=== PATIENT | female | born 1990 | race American Indian/Alaskan Native ===

== ENCOUNTER 2016-06-26 04:17 | Emergency (ER) | payer OTHER ==
[2016-06-26 04:36] VITALS: BP 158/97; PULSE 115; RESP 18; TEMP 98.2; O2SAT 100
[2016-06-26] MEDS ORDERED: DiphenhydrAMINE 50 mg/ml Inj ONE (04:40)
[2016-06-26] MEDS ORDERED: DiphenhydrAMINE 50 mg/ml Inj IM STA (04:43)
[2016-06-26 05:39] LABS: BASO # 0.1 K/uL (0.0-0.2); BASO % 1.2 % (0.0-2.0); EOS # 0.1 K/uL (0.0-0.7); EOS % 1.8 % (0.0-4.0); HEMATOCRIT 40.3 % (34.0-47.0); LYMPH # 1.7 K/uL (1.0-4.3); MEAN CELL VOLUME 84.6 fl (81.0-99.0); MEAN PLATELET VOLUME 9.5 fl (7.2-11.7); MONO # 0.4 K/uL (0.0-0.8); MONO % 5.7 % (0.0-10.0); NEUT % 63.3 % (50.0-75.0); NRBC % 0.1 % (0.0-0.0); RED CELL DISTRIBUTION WIDTH 14.1 % (11.5-14.5); WHITE BLOOD COUNT 6.2 K/uL (4.8-10.8)
[2016-06-26 05:42] LABS: ALB/GLOB RATIO 1.4 (1.0-2.1); ALCOHOL SERUM 218 mg/dl (0-10); ALKALINE PHOSPHATASE 88 U/L (38-126); ALT/SGPT 28 U/L (9-52); AST/SGOT 25 U/L (14-36); BILIRUBIN,TOTAL 0.3 mg/dl (0.2-1.3); BLOOD UREA NITROGEN 16 mg/dl (7-17); CALCIUM 9.3 mg/dL (8.4-10.2); CARBON DIOXIDE 22 mmol/L (22-30); CHLORIDE 108 mmol/L (98-107); GFR AFRICAN-AMERICAN > 60; GLUCOSE,RANDOM 95 mg/dL (65-105); POTASSIUM 3.8 MMOL/L (3.6-5.0); SODIUM 144 mmol/l (132-148); TOTAL PROTEIN 7.7 G/DL (6.3-8.2)
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
== END 2016-06-26 07:11 | disposition home or self-care (01) ==
LOC: MERGE 04:17 → H.ER 04:17 → EDSEX 04:17 → H.ER 07:11
DX: F10.129 Alcohol abuse with intoxication, unspecified (principal); S00.83XA Contusion of other part of head, initial encounter; S09.90XA Unspecified injury of head, initial encounter; Y04.0XXA Assault by unarmed brawl or fight, initial encounter; Y92.89 Other specified places as the place of occurrence of the external cause; J45.909 Unspecified asthma, uncomplicated

== ENCOUNTER 2016-07-01 23:48 | Emergency (ER) | payer OTHER ==
[2016-07-01 23:48] VITALS: BMI 46.5
[2016-07-01 23:53] VITALS: RESP 16; TEMP 98.2; O2SAT 100
--- NOTE | 2016-07-02 00:11 | ED PDOC ---
HPI: General Adult Time Seen by Provider: 07/01/16 23:50 Chief Complaint (Nursing): Medical Clearance Chief Complaint (Provider): Medical clearance History Per: Patient Additional Complaint(s): 25 yo female, PMH of HTN, presents to ED To ED via BLS and in custody of [place] [employer] for medical and psychiatric clearance prior to incarceration. Patient c/o headache. States she has not taken her bp medication in 2 months. Past Medical History Reviewed: Nursing Documentation, Vital Signs Vital Signs: Last Vital Signs Temp 98.2 F 07/01/16 23:50 Pulse 75 07/02/16 01:15 Resp 16 07/02/16 01:15 BP 159/95 H 07/02/16 01:15 Pulse Ox 100 07/03/16 05:43 - Medical History PMH: Asthma (non compliant), Bronchitis, HTN (non compliant) Denies: Depression, Chronic Kidney Disease - Surgical History Surgical History: No Surg Hx - Family History Family History: States: Unknown Family Hx - Social History Current smoker - smoking cessation education provided: No Alcohol: Social Drugs: Cannabis - Immunization History Hx Tetanus Toxoid Vaccination: No Hx Influenza Vaccination: No Hx Pneumococcal Vaccination: No - Home Medications Home Medications: Ambulatory Orders Medication Instructions Recorded Albuterol HFA [Ventolin HFA 90 2 puff IH Q4 #1 puff 03/30/16 mcg/actuation (8 g)] Cyclobenzaprine [Flexeril] 5 mg PO Q8 PRN #14 tab 03/30/16 Hydrochlorothiazide [Microzide] 25 mg PO DAILY #20 cap 03/30/16 Ibuprofen [Motrin] 600 mg PO Q6 PRN #30 tab 03/30/16 NIFEdipine ER [Procardia XL] 30 mg PO DAILY #20 ter 03/30/16 guaiFENesin [guaifENESIN] 200 mg PO Q8 PRN #1 bottle 03/30/16 Albuterol HFA [Ventolin HFA 90 2 puff IH [id number] #1 puff 04/10/16 mcg/actuation (8 g)] Naproxen [Naprosyn] 500 mg PO BID #14 tab 04/10/16 - Allergies Allergies/Adverse Reactions: Allergies Allergy/AdvReac Type Severity Reaction Status Date / Time No Known Allergies Allergy Verified 07/01/16 23:50 Review of Systems ROS Statement: Except As Marked, All Systems Reviewed And Found Negative Physical Exam - Reviewed Nursing Documentation Reviewed: Yes Vital Signs Reviewed: Yes - Physical Exam Appears: Positive for: Well, Non-toxic, No Acute Distress Head Exam: Positive for: ATRAUMATIC, NORMAL INSPECTION, NORMOCEPHALIC Skin: Positive for: Normal Color, Warm, DRY Eye Exam: Positive for: EOMI, Normal appearance, PERRL ENT: Positive for: Normal ENT Inspection Neck: Positive for: Normal, Painless ROM Cardiovascular/Chest: Positive for: Regular Rate, Rhythm Respiratory: Positive for: CNT, Normal Breath Sounds Gastrointestinal/Abdominal: Positive for: Normal Exam, Bowel Sounds, Soft Back: Positive for: Normal Inspection Extremity: Positive for: Normal ROM Neurologic/Psych: Positive for: Alert, Oriented - ECG O2 Sat by Pulse Oximetry: 100 Medical Decision Making Medical Decision Making: Pt medicated with Clonidine PO Pt on re-eval doing well, repeat BP 159/95 Disposition - Clinical Impression Clinical Impression: Hypertension, Adjustment disorder - Patient ED Disposition Is Patient to be Admitted: No - Disposition Disposition: Routine/Home Disposition Time: 03:00 Condition: STABLE Additional Instructions: Patient is medically and psychiatrically cleared for incarceration Instructions: Mood Disorders (ED), Hypertension (ED) - POA Present On Arrival: None
[2016-07-02 01:41] VITALS: BP 159/95; PULSE 75
== END 2016-07-02 01:42 ==
LOC: H.ER 23:48
DX: I10 Essential (primary) hypertension (principal); F39 Unspecified mood [affective] disorder

== ENCOUNTER 2016-11-15 01:39 | Emergency (ER) | payer OTHER, MEDICAID ==
[2016-11-15 01:40] VITALS: BMI 46.5
--- NOTE | 2016-11-15 02:54 | ED PDOC ---
HPI: Chest Pain Time Seen by Provider: 11/15/16 01:43 Chief Complaint (Nursing): Chest Pain Chief Complaint (Provider): Chest pain History Per: Patient History/Exam Limitations: no limitations Onset/Duration Of Symptoms: Days (weeks) Current Symptoms Are (Timing): Intermittent Episodes (pain with sudden movement or bending down) Exacerbating Factors: Movement (bending down or sudden movement) Alleviating Factors: Other (massaging/pressing on chest) Additional Complaint(s): Patient is a 26 y/o female with a past medical history of hypertension, adjustment disorder, asthma, and alcoholism who presents to the ED complaining of intermittent chest pain that has persisted for weeks. She reports that the pain is worsened by bending down or sudden movement, and that it worsened today at her job as she lifted heavy things. She also reports that the pain is alleviated by massaging or pressing on her chest. Patient claims that she has not been complying on medication for her hypertension for over a month due to difficulties with insurance, and denies any shortness of breath, vomiting, diarrhea, or coughing. Patient claims she is currently not on any medications. Blood pressure at triage was 146/84. PMD: Provider TBD - Risk Factors TAD Risk Factors: Pos: Hypertension Past Medical History Reviewed: Historical Data, Nursing Documentation, Vital Signs Vital Signs: Last Vital Signs Temp 98.6 F 11/15/16 01:59 Pulse 79 11/15/16 05:32 Resp 16 11/15/16 01:59 BP 135/61 11/15/16 05:32 Pulse Ox 98 11/15/16 05:27 - Medical History PMH: Asthma (non compliant), Bronchitis, HTN (non compliant) Denies: Depression, Diabetes, Hepatitis, HIV, Chronic Kidney Disease, Seizures, Sexually Transmitted Disease Other PMH: Adjustment disorder, alcoholism - Surgical History Surgical History: - Family History Family History: States: No Known Family Hx, Unknown Family Hx - Social History Current smoker - smoking cessation education provided: Yes (Light smoker, <10 cigarettes daily) Alcohol: Occasional Drugs: Denies - Immunization History Hx Tetanus Toxoid Vaccination: No Hx Influenza Vaccination: No Hx Pneumococcal Vaccination: No - Home Medications Home Medications: Ambulatory Orders Medication Instructions Recorded Albuterol HFA [Ventolin HFA 90 2 puff IH Q4 #1 puff 03/30/16 mcg/actuation (8 g)] Cyclobenzaprine [Flexeril] 5 mg PO Q8 PRN #14 tab 03/30/16 Hydrochlorothiazide [Microzide] 25 mg PO DAILY #20 cap 03/30/16 Ibuprofen [Motrin] 600 mg PO Q6 PRN #30 tab 03/30/16 NIFEdipine ER [Procardia XL] 30 mg PO DAILY #20 ter 03/30/16 guaiFENesin [guaifENESIN] 200 mg PO Q8 PRN #1 bottle 03/30/16 Albuterol HFA [Ventolin HFA 90 2 puff IH [id number] #1 puff 04/10/16 mcg/actuation (8 g)] Naproxen [Naprosyn] 500 mg PO BID #14 tab 04/10/16 - Allergies Allergies/Adverse Reactions: Allergies Allergy/AdvReac Type Severity Reaction Status Date / Time No Known Allergies Allergy Verified 07/01/16 23:50 Review of Systems ROS Statement: Except As Marked, All Systems Reviewed And Found Negative Cardiovascular: Positive for: Chest Pain Respiratory: Negative for: Cough, Shortness of Breath Gastrointestinal: Negative for: Vomiting, Diarrhea Physical Exam - Reviewed Nursing Documentation Reviewed: Yes Vital Signs Reviewed: Yes - Physical Exam Appears: Positive for: No Acute Distress Head Exam: Positive for: ATRAUMATIC, NORMOCEPHALIC Skin: Positive for: Normal Color, Warm, Dry Eye Exam: Positive for: Normal appearance, EOMI, PERRL ENT: Positive for: Normal ENT Inspection Cardiovascular/Chest: Positive for: Regular Rate, Rhythm. Negative for: Murmur Respiratory: Positive for: Normal Breath Sounds. Negative for: Respiratory Distress Gastrointestinal/Abdominal: Positive for: Normal Exam, Soft. Negative for: Tenderness Back: Positive for: Normal Inspection. Negative for: L CVA Tenderness, R CVA Tenderness, Vertebral Tenderness Extremity: Positive for: Normal ROM. Negative for: Pedal Edema Neurologic/Psych: Positive for: Alert, Oriented (x3). Negative for: Motor/ Sensory Deficits Comments: Appears obese - Laboratory Results Result Diagrams: 11/15/16 02:57 11/15/16 02:57 - ECG ECG Rhythm: Positive for: Normal QRS, Sinus Rhythm Rate: 93 O2 Sat by Pulse Oximetry: 98 (RA) Pulse Ox Interpretation: Normal Interpretation Of Abnormal: Left Ventricular Hypertrophy Medical Decision Making Medical Decision Making: Time: 02:48 Initial Impression: chest pain worse with movement likely muscular chest pain ekg and troponin normal Initial Plan: -Labs -Chest XR -Ibuprofen 600mg PO Time: 03:32 -High blood pressure noted Plan: -Trandate 20mg IVP -Catapres 0.2mg PO Time: 04:29 -Patient refused medication for elevated blood pressure Time 05:24 -Patient accepted medication for elevated blood pressure. Blood pressure dropped to 135/61 pt noted to be sleeping and comfortable pt reevaluated and no pain or sob stable for dc and outpt follow up Scribe Attestation: Documented by Araceli Montano, acting as a scribe for Lazaro Briseno MD Provider Scribe Attestation: All medical record entries made by the Scribe were at my direction and personally dictated by me. I have reviewed the chart and agree that the record accurately reflects my personal performance of the history, physical exam, medical decision making, and the department course for this patient. I have also personally directed, reviewed, and agree with the discharge instructions and disposition. Disposition - Clinical Impression Clinical Impression: Chronic hypertension - Patient ED Disposition Is Patient to be Admitted: No Counseled Patient/Family Regarding: Diagnosis, Need For Followup - Disposition Referrals: [facility] [Outside] [facility] [Outside] Disposition: Routine/Home Disposition Time: 03:00 Condition: IMPROVED Additional Instructions: follow up with your primary doctor in 1-2 days you need to take your medication and follow up without fail return to the ED with any worsening or concerning symptoms Instructions: Chronic Hypertension (ED) Forms: [employer] (Canadian)
[2016-11-15 03:03] LABS: BASO # 0.1 K/uL (0.0-0.2); BASO % 1.3 % (0.0-2.0); EOS # 0.1 K/uL (0.0-0.7); EOS % 2.4 % (0.0-4.0); HEMATOCRIT 36.5 % (34.0-47.0); LYMPH # 2.1 K/uL (1.0-4.3); LYMPH % 34.4 % (20.0-40.0); MEAN CORPUSCULAR HEMOGLOBIN 27.7 pg (27.0-31.0); MEAN PLATELET VOLUME 10.1 fl (7.2-11.7); MONO # 0.4 K/uL (0.0-0.8); MONO % 6.6 % (0.0-10.0); NEUT # 3.4 K/uL (1.8-7.0); NEUT % 55.3 % (50.0-75.0); NRBC % 0.1 % (0.0-0.0); RED CELL DISTRIBUTION WIDTH 13.5 % (11.5-14.5); WHITE BLOOD COUNT 6.1 K/uL (4.8-10.8)
[2016-11-15 03:09] LABS: ALB/GLOB RATIO 1.3 (1.0-2.1); ALKALINE PHOSPHATASE 63 U/L (38-126); ALT/SGPT 38 U/L (9-52); AST/SGOT 21 U/L (14-36); BILIRUBIN,TOTAL 0.3 mg/dl (0.2-1.3); BLOOD UREA NITROGEN 13 mg/dl (7-17); CALCIUM 9.1 mg/dL (8.4-10.2); CARBON DIOXIDE 24 mmol/L (22-30); CHLORIDE 106 mmol/L (98-107); GFR AFRICAN-AMERICAN > 60; GLUCOSE,RANDOM 102 mg/dL (65-105); POTASSIUM 3.8 MMOL/L (3.6-5.0); SODIUM 138 mmol/l (132-148); TOTAL PROTEIN 6.7 G/DL (6.3-8.2)
[2016-11-15 03:21] VITALS: RESP 16; TEMP 98.6; O2SAT 98
[2016-11-15] MEDS ORDERED: Labetalol 5 mg/ml Inj 20ML IVP STA (03:32)
[2016-11-15 05:18] VITALS: BP 135/61
[2016-11-15 07:14] VITALS: PULSE 93
--- NOTE | 2016-11-15 09:58 | RAD ---
HISTORY: chest pain COMPARISON: No prior. TECHNIQUE: Chest PA and lateral FINDINGS: LUNGS: No active pulmonary disease. PLEURA: No significant pleural effusion identified. No pneumothorax apparent. CARDIOVASCULAR: Normal. OSSEOUS STRUCTURES: No significant abnormalities. VISUALIZED UPPER ABDOMEN: Normal. OTHER FINDINGS: None. IMPRESSION: No acute cardiopulmonary disease appreciated.
== END 2016-11-15 05:43 | disposition home or self-care (01) ==
LOC: H.ER 01:39
DX: I10 Essential (primary) hypertension (principal); J45.909 Unspecified asthma, uncomplicated; F10.10 Alcohol abuse, uncomplicated

== ENCOUNTER 2017-01-16 06:20 | Emergency (ER) | payer OTHER, MEDICAID ==
[2017-01-16 06:29] VITALS: BMI 45.9
[2017-01-16 06:36] VITALS: RESP 16; TEMP 98.1
[2017-01-16] MEDS ORDERED: Lidocaine 2% Inj (20ml) SC STA (07:23)
[2017-01-16] MEDS ORDERED: Lidocaine 2% Inj (20ml) ONE (07:35)
--- NOTE | 2017-01-16 07:47 | ED PDOC ---
Upper Extremity Pain/Injury Time Seen by Provider: 01/16/17 07:10 Chief Complaint (Nursing): Finger,Hand,&Wrist History Per: Patient (states that she crushed her right index finger with a car door this morning.) Past Medical History Reviewed: Historical Data, Nursing Documentation, Vital Signs Vital Signs: Last Vital Signs Temp 98.1 F 01/16/17 06:33 Pulse 108 H 01/16/17 06:33 Resp 16 01/16/17 06:33 BP 191/126 H 01/16/17 06:33 Pulse Ox 100 01/16/17 06:33 - Medical History PMH: Asthma (non compliant), Bronchitis, HTN (non compliant) Denies: Depression, Diabetes, Hepatitis, HIV, Chronic Kidney Disease, Seizures, Sexually Transmitted Disease - Surgical History Surgical History: - Family History Family History: States: Unknown Family Hx - Immunization History Hx Tetanus Toxoid Vaccination: No Hx Influenza Vaccination: No Hx Pneumococcal Vaccination: No - Home Medications Home Medications: Ambulatory Orders Medication Instructions Recorded Albuterol HFA [Ventolin HFA 90 2 puff IH Q4 #1 puff 03/30/16 mcg/actuation (8 g)] Cyclobenzaprine [Flexeril] 5 mg PO Q8 PRN #14 tab 03/30/16 Hydrochlorothiazide [Microzide] 25 mg PO DAILY #20 cap 03/30/16 Ibuprofen [Motrin] 600 mg PO Q6 PRN #30 tab 03/30/16 NIFEdipine ER [Procardia XL] 30 mg PO DAILY #20 ter 03/30/16 guaiFENesin [guaifENESIN] 200 mg PO Q8 PRN #1 bottle 03/30/16 Albuterol HFA [Ventolin HFA 90 2 puff IH [id number] #1 puff 04/10/16 mcg/actuation (8 g)] Naproxen [Naprosyn] 500 mg PO BID #14 tab 04/10/16 Acetaminophen [Tylenol 325mg tab] 650 mg PO Q6H PRN #30 tab 01/16/17 Naproxen [Naprosyn] 500 mg PO BID PRN #20 tablet 01/16/17 - Allergies Allergies/Adverse Reactions: Allergies Allergy/AdvReac Type Severity Reaction Status Date / Time No Known Allergies Allergy Verified 07/01/16 23:50 Review of Systems ROS Statement: Except As Marked, All Systems Reviewed And Found Negative Constitutional: Negative for: Fever, Chills Musculoskeletal: Positive for: Other (pain in the distal right index finger) Physical Exam - Reviewed Nursing Documentation Reviewed: Yes Vital Signs Reviewed: Yes - Physical Exam Appears: Positive for: Well, Non-toxic, No Acute Distress Head Exam: Positive for: ATRAUMATIC, NORMAL INSPECTION, NORMOCEPHALIC Skin: Positive for: Normal Color Eye Exam: Positive for: Normal appearance ENT: Positive for: Normal ENT Inspection Neck: Positive for: Normal Extremity: Positive for: Other (mild swelling distal phalanx right hand 2nd digit. chronic thickened skin medial edge (chronic changes from paronychia from ingrown nail), fractured nail towards the base of nail.) Neurologic/Psych: Positive for: Alert, Oriented - ECG O2 Sat by Pulse Oximetry: 100 Medical Decision Making Medical Decision Makin.45a - case reviewed with Dr. Nixon, including physical findings and x-rays. recommends xeroform and dressing, splinting and discharge with followup. Disposition - Clinical Impression Clinical Impression: Finger fracture, right - Patient ED Disposition Is Patient to be Admitted: No Doctor Will See Patient In The: Office Counseled Patient/Family Regarding: Diagnosis, Need For Followup, Rx Given - Disposition Referrals: Yohannes Nixon MD [Medical Doctor] - [facility] [Outside] Disposition: Routine/Home Disposition Time: 08:45 Condition: STABLE Prescriptions: Acetaminophen [Tylenol 325mg tab] 650 mg PO Q6H PRN #30 tab PRN Reason: Pain, Mild (1-3) Naproxen [Naprosyn] 500 mg PO BID PRN #20 tablet PRN Reason: Pain, Moderate (4-7) Instructions: Finger Fracture (ED) Forms: [facility] (Welsh) - POA Present On Arrival: Falls Or Trauma
[2017-01-16 09:21] VITALS: BP 153/96; PULSE 88; O2SAT 99
--- NOTE | 2017-01-16 11:15 | RAD ---
PROCEDURE: Right Hand Radiographs. HISTORY: crush injury index finger COMPARISON: None. FINDINGS: BONES: Fracture 2nd distal phalanx. JOINTS: Normal. No osteoarthritic changes. SOFT TISSUES: Second digital soft tissue swelling.. OTHER FINDINGS: None. IMPRESSION: Fracture 2nd distal phalanx.
== END 2017-01-16 09:28 | disposition home or self-care (01) ==
LOC: H.ER 06:20
DX: S62.600A Fracture of unspecified phalanx of right index finger, initial encounter for closed fracture (principal); W23.0XXA Caught, crushed, jammed, or pinched between moving objects, initial encounter; Y92.89 Other specified places as the place of occurrence of the external cause; I10 Essential (primary) hypertension; J45.909 Unspecified asthma, uncomplicated

== ENCOUNTER 2017-01-18 15:27 | Emergency (ER) | payer OTHER, MEDICAID ==
[2017-01-18 15:27] VITALS: BMI 45.9
[2017-01-18 15:39] VITALS: RESP 20; TEMP 98; O2SAT 98
--- NOTE | 2017-01-18 16:27 | ED PDOC ---
HPI: Wound Care - HPI Time Seen by Provider: 01/18/17 16:06 Chief Complaint (Nursing): Wound Check Chief Complaint (Provider): Wound Check History Per: Patient Exam Limitations: no limitations Onset/Duration Of Symptoms: Days (x 4) Current Symptoms Are (Timing): Still Present Additional History Per: Prior Records Additional Complaint(s): Holley Osorio is a 26 y/o female who presents to the ED for a wound check. Patient was here 4 days ago after the right index finger got stuck in a door. She had an X-Ray showing a fracture to second distal phalanx. Patient returns today complaining of throbbing pain to the finger along with occasional tingling to the top of the finger. Pain has not been alleviated by taking the Tylenol or Naproxen prescribed. She has not followed up with Dr. Nixon or any hand specialist due to insurance problems. Additionally, patient has a history of hypertension and has been noncompliant with taking her labetalol and amlodipine. She last took the medications on . Denies any associated headache, visual changes, dizziness, numbness, weakness, chest pain, or shortness of breath. PMD: None provided Past Medical History Reviewed: Historical Data, Nursing Documentation, Vital Signs Vital Signs: Last Vital Signs Temp 98 F 01/18/17 15:31 Pulse 98 H 01/18/17 15:31 Resp 20 01/18/17 15:31 BP 219/128 H 01/18/17 15:31 Pulse Ox 98 01/18/17 15:31 - Medical History PMH: Asthma (non compliant), Bronchitis, HTN (non compliant) Denies: Depression, Diabetes, Hepatitis, HIV, Chronic Kidney Disease, Seizures, Sexually Transmitted Disease - Surgical History Surgical History: - Family History Family History: States: Unknown Family Hx - Social History Current smoker - smoking cessation education provided: Yes Alcohol: Social Drugs: Denies - Immunization History Hx Tetanus Toxoid Vaccination: No Hx Influenza Vaccination: No Hx Pneumococcal Vaccination: No - Home Medications Home Medications: Ambulatory Orders Medication Instructions Recorded Albuterol HFA [Ventolin HFA 90 2 puff IH Q4 #1 puff 03/30/16 mcg/actuation (8 g)] Cyclobenzaprine [Flexeril] 5 mg PO Q8 PRN #14 tab 03/30/16 Hydrochlorothiazide [Microzide] 25 mg PO DAILY #20 cap 03/30/16 Ibuprofen [Motrin] 600 mg PO Q6 PRN #30 tab 03/30/16 NIFEdipine ER [Procardia XL] 30 mg PO DAILY #20 ter 03/30/16 guaiFENesin [guaifENESIN] 200 mg PO Q8 PRN #1 bottle 03/30/16 Albuterol HFA [Ventolin HFA 90 2 puff IH [id number] #1 puff 04/10/16 mcg/actuation (8 g)] Naproxen [Naprosyn] 500 mg PO BID #14 tab 04/10/16 Acetaminophen [Tylenol 325mg tab] 650 mg PO Q6H PRN #30 tab 01/16/17 Naproxen [Naprosyn] 500 mg PO BID PRN #20 tablet 01/16/17 - Allergies Allergies/Adverse Reactions: Allergies Allergy/AdvReac Type Severity Reaction Status Date / Time No Known Allergies Allergy Verified 07/01/16 23:50 Review of Systems ROS Statement: Except As Marked, All Systems Reviewed And Found Negative Constitutional: Negative for: Fever, Chills Eyes: Negative for: Vision Change Cardiovascular: Negative for: Chest Pain Respiratory: Negative for: Shortness of Breath Gastrointestinal: Negative for: Nausea, Vomiting, Diarrhea Skin: Positive for: Other (Painful wound to right 2nd digit) Neurological: Positive for: Other (tingling to distal aspect of finger). Negative for: Weakness, Numbness, Headache, Dizziness Physical Exam - Reviewed Nursing Documentation Reviewed: Yes Vital Signs Reviewed: Yes - Physical Exam Appears: Positive for: Non-toxic, No Acute Distress Head Exam: Positive for: ATRAUMATIC, NORMAL INSPECTION, NORMOCEPHALIC Skin: Positive for: Normal Color, Warm, Dry Eye Exam: Positive for: EOMI, Normal appearance, PERRL Neck: Positive for: Normal, Painless ROM, Supple Cardiovascular/Chest: Positive for: Regular Rate, Rhythm. Negative for: Murmur Respiratory: Positive for: Normal Breath Sounds. Negative for: Respiratory Distress Extremity: Positive for: Tenderness (to right 2nd digit. Decreased ROM secondary to pain), Swelling (mild swelling to the distal phalynx of 2nd digit) , Other (chronic thickened skin medial edge (chronic changes from paronychia from ingrown nail), fractured nail towards the base of nail) Neurologic/Psych: Positive for: Alert, adult education instructor II-XII, Oriented (x3). Negative for : Motor/Sensory Deficits - ECG O2 Sat by Pulse Oximetry: 98 (RA) Pulse Ox Interpretation: Normal - Radiology X-Ray: Interpreted by Me, Viewed By Me X-Ray Interpretation: Fracture (same as old) - Progress ED Course And Treament: 1733: Pt. advised to take her bp meds and see hand surgeon. See clinic to get referral if needed. Can see Dr. Nixon as recommended by him as well. BP improved with meds. - Physician Consult Information Time Consulting Physican Contacted: 16:38 Physician Contacted: Yohannes Nixon Outcome Of Conversation: Spoke with Dr. Nixon, states patient can follow up with him or in the clinic. No further intervention is indicated in the ER. Medical Decision Making Medical Decision Making: Time: 16:22 Initial Plan: --Motrin 600 mg PO --Labetalol 200 mg PO --Clonidine 0.2 mg PO --Repeat X-Ray Right Hand 2nd Digit --Paged hand specialist Dr. Nixon Scribe Attestation: Documented by Aishwarya Saenz, acting as a scribe for Jeremías De La Rosa MD Provider Scribe Attestation: All medical record entries made by the Scribe were at my direction and personally dictated by me. I have reviewed the chart and agree that the record accurately reflects my personal performance of the history, physical exam, medical decision making, and the department course for this patient. I have also personally directed, reviewed, and agree with the discharge instructions and disposition. Disposition - Clinical Impression Clinical Impression: Hypertension, Finger fracture - Patient ED Disposition Is Patient to be Admitted: No Counseled Patient/Family Regarding: Studies Performed, Diagnosis, Need For Followup - Disposition Referrals: [facility] [place] [Outside] - 01/19/[address] [facility] [place] [Outside] - 01/19/17 Yohannes Nixon MD [Medical Doctor] - 01/19/17 Disposition: Routine/Home Disposition Time: 17:35 Condition: STABLE Additional Instructions: Return if not better in 3 days. See the orthopedic clinic without fail or go to the hand surgeon. A specialist has to see your finger for further evaluation and treatment. Lack of follow up can deform your finger permanently. Instructions: Finger Fracture (ED) Forms: [employer] ([place]) Orthopedic Time Performed: 17:39 Time Out: Side verified, Site verified, Patient ID confirmed Procedure: Splint Other:: Finger splint 2nd digit right Notes:: Tolerated well
[2017-01-18 16:42] VITALS: PULSE 74
[2017-01-18 17:44] VITALS: BP 153/89
--- NOTE | 2017-01-18 18:20 | RAD ---
PROCEDURE: Right Index finger radiographs. HISTORY: pain COMPARISON: None. TECHNIQUE: AP radiograph of the right hand, as well as spot oblique and lateral images of index finger were obtained. FINDINGS: RIGHT INDEX FINGER: Fracture involving the base of the distal phalanx. The fracture includes an intra-articular component. Remainder of the right hand (as seen on the AP view) grossly intact. JOINTS: Normal. SOFT TISSUES: Soft tissue swelling attests to the acuity of the fracture. OTHER FINDINGS: None. IMPRESSION: Acute fracture 2nd digit distal phalanx. Concordant results with the preliminary interpretation rendered by the emergency department physician procedure.
== END 2017-01-18 18:15 | disposition home or self-care (01) ==
LOC: H.ER 15:27
DX: Z47.89 Encounter for other orthopedic aftercare (principal); I10 Essential (primary) hypertension